=== PATIENT | female | born 1950 | race Caucasian/White ===

== ENCOUNTER → 2016-08-04 | Outpatient (CLI) | payer OTHER ==
[~2016-08-04] MED LIST: ASPI-435 PO; CALC-51 PO; LORA-741 PO; MULT-506 PO
--- NOTE | 2016-08-04 15:55 | MAMMOGRAPHY REPORT ---
UNILATERAL LEFT DIGITAL DIAGNOSTIC MAMMOGRAM TOMOSYNTHESIS AND TARGETED LEFT ULTRASOUND: 08/04/2016 CLINICAL HISTORY: Callback from screening mammogram dated 01/29/2016 for a left medial breast asymmet ry. The patient reports that her physician felt a possible lump in the left breast during a clinica l exam. TECHNIQUE: Breast tomosynthesis in addition to standard 2D mammography was performed. Left MLO 2-D and tomosynthesis images and spot compression left CC 2-D and tomosynthesis images were obtained. COMPARISON: Comparison is made to exams dated: 01/29/2016 mammogram, 01/22/2015 mammogram, 01/07/2015 m ammogram - [facility], and 01/20/2012 mammogram - [facility]. BREAST COMPOSITION: The tissue of the left breast is extremely dense, which lowers the sensitivity of mammography. FINDINGS: The previously described asymmetry seen within the left medial breast on the cc view effa lola to a baseline appearance on the additional views, and has the appearance of normal fibroglandula r tissue on the tomosynthesis images. There are no suspicious masses, calcifications, or areas of a rchitectural distortion noted in the left breast on the additional views. Targeted ultrasound was performed of the left medial breast in the region of the mammographic asymme try. Targeted ultrasound was also performed of the area of the possible lump pointed out by the pat margot, in the left breast at approximately 9:00, 3 cm from the nipple. Sonographically normal tissue is seen in these regions, without evidence of a mass or other suspicious sonographic abnormality. IMPRESSION: ACR BI-RADS CATEGORY 2: BENIGN, TARGETED ULTRASOUND ACR BI-RADS CATEGORY 2: BENIGN 1. The left breast asymmetry effaces on the additional views, without corresponding sonographic abn ormality evident. The asymmetry is benign and compatible with normal fibroglandular tissue. 2. No suspicious sonographic or mammographic abnormality at the site of the possible left medial br east lump pointed out by the patient. Recommend clinical follow-up. There is no mammographic or targeted sonographic evidence of malignancy. Return to annual mammogram screening schedule is recommended, due January 2017. The patient has been verbally notified of th e results. Approximately 10% of breast cancers are not detected with mammography. A negative mammographic repor t should not delay biopsy if a clinically suggestive mass is present. Ele Heart M.D. ah/:08/04/2016 13:11:47 Nuclear Waste Management Engineer: Ceci Correa, [facility] letter sent: Normal 1/2 BI-RADS Code: ACR BI-RADS Category 2: Benign Ultrasound BI-RADS: ACR BI-RADS Category 2: Benign
== END | disposition home or self-care (01) ==
LOC: C.MAMM 12:39
PROVIDERS: ATTEND Student in an Organized Health Care Education/Training Program
DX: N64.9 Disorder of breast, unspecified (principal); N63 Unspecified lump in breast

== ENCOUNTER → 2017-02-11 | Outpatient (CLI) | payer OTHER ==
--- NOTE | 2017-02-14 08:02 | MAMMOGRAPHY REPORT ---
BILATERAL DIGITAL SCREENING MAMMOGRAM TOMOSYNTHESIS WITH CAD: 02/11/2017 CLINICAL HISTORY: Routine screening. Patient has no complaints. TECHNIQUE: Breast tomosynthesis in addition to standard 2D mammography was performed. Current study was also evaluated with a Computer Aided Detection (CAD) system. COMPARISON: Comparison is made to exams dated: 08/04/2016 mammogram, 08/04/2016 ultrasound, 01/29/2016 mammogram, 01/22/2015 mammogram, 01/07/2015 mammogram - [facility], and 01/20/2012 mamm ogram - [facility]. BREAST COMPOSITION: The tissue of both breasts is extremely dense, which lowers the sensitivity of m ammography. FINDINGS: No suspicious masses, calcifications, or areas of architectural distortion are noted in ei ther breast. There has been no significant interval change compared to prior exams. Scattered bilater al benign-appearing calcifications are not significantly changed. IMPRESSION: ACR BI-RADS CATEGORY 2: BENIGN There is no mammographic evidence of malignancy. A 1 year screening mammogram is recommended. The pa tient will receive written notification of the results. Approximately 10% of breast cancers are not detected with mammography. A negative mammographic report should not delay biopsy if a clinically suggestive mass is present. Ele Heart M.D. ah/:02/11/2017 16:58:17 Bomb Squad Officer: Ceci Correa, [facility] letter sent: Normal 1/2 BI-RADS Code: ACR BI-RADS Category 2: Benign
== END | disposition home or self-care (01) ==
LOC: C.MAMM 10:35
PROVIDERS: ATTEND Student in an Organized Health Care Education/Training Program
DX: Z12.31 Encounter for screening mammogram for malignant neoplasm of breast (principal)